=== PATIENT | male | born 1980 | race Caucasian/White ===

== ENCOUNTER 2016-06-30 18:13 | Emergency (ER) | payer SELFPAY ==
[~2016-06-30 18:13] MED LIST: Iopamidol 370 76% 100 ML VIAL ONE
[2016-06-30] MEDS ORDERED: Sodium Chloride 0.9% 1,000 ML ONE ×3 (18:27→21:58)
[2016-06-30 18:30] LABS: #Basophils 0.1 thou/uL (0.0-0.2); #Eosinphils 0.1 thou/uL (0.0-0.7); #Lymphocytes 3.9 thou/uL (1.20-3.40); #Neutrophils 11.6 thou/uL (1.40-6.50); %Basophils 0.6 % (0.0-1.0); %Eosinophils 0.6 % (0.0-10.0); %Lymphocytes 23.1 % (21.0-51.0); %Monocytes 6.2 % (0.0-10.0); Hematocrit 44.9 % (42.0-52.0); Mean Platelet Volume 8.2 fL (7.4-10.4); White Blood Cell (WBC) Count 16.7 thou/uL (4.8-10.8)
[2016-06-30 18:46] LABS: ALT (SGPT) 27 U/L (0-55); AST (SGOT) 26 U/L (5-34); Alkaline Phosphatase 78 U/L (40-150); Anion Gap 18 mmol/L (10-20); BUN (Urea Nitrogen) 14 mg/dL (8.9-20.6); Bilirubin, Total 0.4 mg/dL (0.2-1.2); Calc. Creatinine Clearance 0 mL/min (70-130); Calcium 8.7 mg/dL (7.8-10.44); Carbon Dioxide 18 mmol/L (22-29); Chloride 104 mmol/L (98-107); Estimated GFR-MDRD 60; Globulin 3.2 g/dL (2.4-3.5); Lipase 42 U/L (8-78); Protein, Total 7.5 g/dL (6.0-8.3)
--- NOTE | 2016-06-30 18:51 | CT ---
CT HEAD NONCONTRAST 06/30/16 INDICATION: Fall from horse. FINDINGS: There is no evidence of acute intracranial hemorrhage, mass effect, midline shift, or ventriculomega ly. No depressed calvarial fracture or evidence of pneumocephalus. Partial opacification of the imag ed right maxillary sinus. IMPRESSION: No acute intracranial hemorrhage or mass effect. POS: [facility]
[2016-06-30 19:08] LABS: Bilirubin Negative (Negative); Blood, Urine Negative (Negative); Glucose, Urine (Dipstick) Negative (Negative); Ketone, Urine Negative (Negative); Nitrite Negative (Negative); Protein, Urine (Dipstick) Negative (Neg-Trace); Urobilinogen 0.2 mg/dL (0.2-1.0)
--- NOTE | 2016-06-30 20:22 | RAD ---
LEFT ELBOW FOUR VIEW 06/30/16 HISTORY: Fell off horse. Left elbow pain. COMPARISON: None. FINDINGS: No acute fracture or malalignment left elbow. No significant joint effusion. IMPRESSION: No acute fracture or malalignment of the left elbow. POS: [facility]
--- NOTE | 2016-06-30 21:28 | CT ---
CT CERVICAL SPINE 06/30/16 HISTORY: Fell off horse. COMPARISON: None. FINDINGS: No acute fracture or malalignment of the cervical spine. The mastoids are clear. The visualized port ions of the ribs are unremarkable. Lung apices are clear. Paraspinal soft tissues are unremarkable. IMPRESSION: No acute fracture or malalignment of the cervical spine. POS: [facility]
--- NOTE | 2016-06-30 22:09 | RAD ---
LEFT FOOT THREE VIEW 06/30/16 HISTORY: Fell off horse. Left foot pain. COMPARISON: None. FINDINGS: No acute fracture or malalignment. Lisfranc interval is maintained. Type I os naviculare. Calcaneus is intact. IMPRESSION: No acute fracture or malalignment of the left foot. POS: [facility]
--- NOTE | 2016-06-30 22:58 | CT ---
CT CHEST CT ABDOMEN CT PELVIS CT LIMITED THORACIC SPINE CT LIMITED LUMBAR SPINE 06/30/16 HISTORY: Fell off horse. COMPARISON: None. FINDINGS: CT CHEST: The aortic contour is normal. No pericardial effusion. No adenopathy. No effusion or pneumothorax. Mild bibasilar atelectasis. The sternum is intact as well as the manubrium. No thoracic spine fracture. No anterior mediastinal hematoma. No displaced rib fracture. The visualized portions of the clavicle and shoulder girdles ar e normal. CT ABDOMEN AND PELVIS: There is small splenules without a solid spleen. Numerous small periaortic although mildly prominent in number and size periaortic lymph nodes. Both ureters are mildly prominent although likely physio logic. Both kidneys are normal. No free intraperitoneal gas or fluid. No evidence of bowel injury. No mesenteric fluid. Lumbar spine is without fracture. No transverse process fracture. Osseous pelvis is without fracture . No retroperitoneal hematoma. IMPRESSION: 1. No traumatic abnormality in the chest, abdomen or pelvis. 2. Mildly prominent retroperitoneal lymph nodes which are periaortic and infrarenal which are a bnormal in size and number. Recommend correlation with lab values. Lymphoproliferative disorder is o f concern although may be reactive due to recent infectious process. Followup is recommended. POS: [facility]
[2016-07-01] MEDS ORDERED: Ondansetron HCl/PF 4 MG/2 ML Vial ONE ×2 (01:39→01:59)
[2016-07-01] MEDS ORDERED: Sodium Chloride 0.9% 1,000 ML ONE (02:03)
== END 2016-07-01 02:35 | disposition home or self-care (01) ==
LOC: NAV ERS 18:13
DX: S06.0X9A Concussion with loss of consciousness of unspecified duration, initial encounter (principal); F10.129 Alcohol abuse with intoxication, unspecified; V80.010A Animal-rider injured by fall from or being thrown from horse in noncollision accident, initial encounter
CPT/HCPCS: 70450; 71260; 72125; 74177; 80053; 80307; 81003; 83690; 85025; 93005; 96361; 96374; 96376; J2405; J7050

== ENCOUNTER 2017-01-21 18:05 | Emergency (ER) | payer OTHER, SELFPAY ==
[2017-01-21] MEDS ORDERED: Acetaminophen 500 MG TAB ONE (18:23)
== END 2017-01-21 18:30 | disposition home or self-care (01) ==
LOC: NAV ERS 18:05
DX: J06.9 Acute upper respiratory infection, unspecified (principal)
CPT/HCPCS: 99283